=== PATIENT | female | born 1995 | race Caucasian/White ===

== ENCOUNTER → 2016-06-24 | Outpatient (CLI) | payer OTHER ==
--- NOTE | 2016-06-24 13:25 | MAMMOGRAPHY REPORT ---
ULTRASOUND OF RIGHT BREAST: 06/24/2016 CLINICAL HISTORY: The patient reports a palpable right breast lump which she has had for 2 years. S he has not noticed any change in size of the lump over the past 2 years. No associated pain or othe r complaints. COMPARISON: No prior exams were available for comparison. TECHNIQUE: Real-time targeted ultrasound of the right breast was performed. FINDINGS: Real-time, high-resolution targeted ultrasound was performed of the area of the palpable lump pointed out by the patient, in the right breast at approximately 10:00 periareolar region. At the site of the palpable lump there is a superficially located oval anechoic circumscribed parallel mass with posterior acoustic enhancement, which measures 5 x 3 x 4 mm. This is benign and most comp atible with a cyst. IMPRESSION: ACR BI-RADS CATEGORY 2: BENIGN The palpable right breast lump which has been stable clinically for 2 years corresponds with a benig n 5 mm cyst on ultrasound. There is no sonographic evidence of malignancy. Recommend clinical foll ow-up; the patient was advised to return to her physician if the lump clinically increased in size. The patient was verbally notified of the results. Rima Underwood M.D. ah/:06/24/2016 09:03:11 [employer] Inspector: Rima Underwood MD, [facility] letter sent: Normal 1/2 BI-RADS Code: ACR BI-RADS Category 2: Benign
== END | disposition home or self-care (01) ==
LOC: C.MAMM 08:38
PROVIDERS: ATTEND Family Medicine
DX: N63 Unspecified lump in breast (principal)